=== PATIENT | male | born 1955 | race Caucasian/White ===

== ENCOUNTER → 2022-11-04 15:00 | Outpatient (BNVA) | payer BC, SELFPAY | PROVIDERS: PCP Pediatrics; Visit Provider Nurse Practitioner Family | DX: Z13.89 Encounter for screening for other disorder (principal) ==

== ENCOUNTER → 2023-02-06 14:01 | Outpatient (BNVA) | payer BC, SELFPAY | PROVIDERS: PCP Pediatrics; Visit Provider Nurse Practitioner Family | DX: M54.2 Cervicalgia (principal); G44.209 Tension-type headache, unspecified, not intractable ==

== ENCOUNTER 2023-04-09 15:41 | Outpatient (REF) | payer MEDICARE, SELFPAY ==
--- NOTE | ~2023-04-09 | MR_ITS ---
EXAMINATION: MR CERVICAL SPINE WITHOUT CONTRAST CLINICAL INFORMATION: Cervicalgia COMPARISON: None TECHNIQUE: MRI of the cervical spine was obtained using routine sequences without contrast. FINDINGS: Normal anatomic alignment. No suspicious marrow signal or focal osseous lesion. Endplate marrow edema at C5-C6. Type II endplate marrow signal changes at C6-C7. T1 vertebral body hemangioma. The vertebral body heights are maintained. Multilevel disc desiccation and height loss, worst at C6-C7. The cervical spinal cord is normal in caliber and signal Limited evaluation of the soft tissues of the neck without demonstrated abnormalities. The flow voids of the major cervical vessels are maintained. Normal appearance of the cervicomedullary junction and visualized posterior fossa SPINAL LEVELS: C2-C3: No significant spinal canal or neuroforaminal narrowing. Mild facet arthropathy. C3-C4: No significant spinal canal or neuroforaminal narrowing C4-C5: Mild facet arthropathy. Shallow right central disc protrusion. Recommend left uncovertebral hypertrophy. No significant central spinal canal stenosis. Mild to moderate right neural foraminal narrowing C5-C6: Disc osteophyte complex, mild facet arthropathy and uncovertebral hypertrophy. No significant central spinal canal stenosis. Moderate bilateral neural foraminal narrowing. C6-C7: Mild facet and uncovertebral hypertrophy. Moderate bilateral neural foraminal narrowing. No significant central spinal canal stenosis. C7-T1: No significant spinal canal or neuroforaminal narrowing MR/MR cervical spine wo con IMPRESSION: Multilevel cervical spondylosis as described above without significant central spinal canal narrowing, cord compression, or cord signal abnormality. There is moderate bilateral neural foraminal narrowing at C5-C6 and C6-C7.
== END 2023-04-09 15:42 | disposition home or self-care (01) ==
LOC: HO.MRI 15:41
PROVIDERS: PCP Pediatrics; Visit Provider Nurse Practitioner Family
DX: M54.2 Cervicalgia (principal); R29.898 Other symptoms and signs involving the musculoskeletal system; R25.1 Tremor, unspecified
CPT/HCPCS: 72141

== ENCOUNTER 2023-05-08 13:53 | Outpatient (REF) | payer MEDICARE, SELFPAY ==
--- NOTE | ~2023-05-08 | XR_ITS ---
EXAMINATION: XR SHOULDER, LEFT CLINICAL INFORMATION: Left shoulder pain COMPARISON: None available. TECHNIQUE: AP external rotation, Grashey, scapular Y, and axillary views of the left shoulder. FINDINGS: Supraspinatus insertional calcific tendinitis. Minimal glenohumeral osteoarthritis. The acromioclavicular joint appears normal. No fracture. XR/XR shoulder LT min 2V IMPRESSION: Supraspinatus insertional calcific tendinitis.
== END 2023-05-08 13:54 | disposition home or self-care (01) ==
LOC: HO.XRAY 13:53
PROVIDERS: PCP Pediatrics; Visit Provider Nurse Practitioner Family
DX: M25.512 Pain in left shoulder (principal)
CPT/HCPCS: 73030

== ENCOUNTER 2023-05-08 13:53 | Outpatient (AMB) | payer MEDICARE, SELFPAY ==
--- NOTE | 2023-05-08 13:57 | A.OFFVIS_ITS ---
Intake Vital Signs 05/08/23 14:05 Height 6 ft 1 in Weight 209 lb 6 oz BMI 27.6 BP 134/66 Blood Pressure Location Rt brachial Position Sitting Pulse 72 Pulse Source Pulse Oximeter Pulse Oximetry (%) 99 Oxygen Delivery Method Room Air Intake Visit Reasons: Cervicalgia Intake Note: Pain today 10/11. 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 Denies previous spine surgery or injections. 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 Patient reports neck pain started due to transition to remote learning and prolonged use of computers with looking down into screens since early 2019 due to COVID pandemic. Denies any recent trauma, injury or falls. His neck pain is mostly axial with painful left sided rotation, lateral bending and cervical extension. Patient reports his neck pain extends to his left occipital region at times. He also presents with mild to moderate left shoulder anterior pain with overhead reaches. Pain is intermittent with worst pain rated at 6/10 and worse in the mornings. He also reports weakness with his left hand grasps. Pain affects his daily activities, functions, sleep, mood and social activities. He has tried to alleviate his neck symptoms with Tylenol, NSAIDs, baclofen, PT exercises, neck pillow support, massages, good posture and adjusting his work environment with no significant improvement. Patient reports he recently retired but continues to experience daily neck pain. Denies previous chiropractic neck adjustments, aqua therapy, TENS unit or acupuncture. Cervical spine MRI showed multilevel cervical spondylosis with moderate bilateral neural foraminal narrowing at C5-C6 and C6-C7. Patient denies any fever, chills, weight loss, vision changes, chest pain, shortness of breaths, gait disturbances, back pain, bladder or bowel incontinence or saddle anesthesia. Location Left sided neck pain, reports mild to moderate left shoulder pain Duration Chronic pain for 2 past years Characteristics of symptom or complaint Aching and dull Aggravating or associated factors Sleeping on left side, looking at screen for long periods of time, movement Relieving factors Laying down with contour pillow, massage Treatment PT exercises, massages, muscle relaxants PFSH Surgical History Hx of colonoscopy History of jyoti hole surgery History of hernia repair Family History Mother Cerebrovascular accident (CVA) Son Skin cancer Daughter Skin cancer Paternal Grandfather Prostate cancer Father Heart murmur Brother Prostate cancer Social History Alcohol intake: current Alcohol intake frequency: a few times a month Patient Tobacco Use Status: Never used Tobacco Review of Systems Const All systems reviewed & are unremarkable except as noted in HPI and below Physical Exam Vital Signs: Last Vital Signs Pulse 72 05/08/23 14:05 BP 134/66 05/08/23 14:05 Pulse Ox 99 05/08/23 14:05 Oxygen Delivery Method Room Air 05/08/23 14:05 BMI result Body Mass Index 27.6 General: Appears afebrile. Alert and oriented. Mood and affect appropriate. Follows and participates in conversation appropriately. Respiratory effort is unlabored. No cough. Able to transition from sit to stand unassisted. Ambulates with bilaterally normal heel strike and toe off. HEENT Head: Yes normal to inspection, Yes No palpable skull fracture present, Yes normocephalic, Yes occipital foramen tenderness (left), No scalp tenderness and No Temporal artery tenderness present Neck Other: Patient with decreased cervical ROM in left lateral rotation and bending. Reports increased pain with cervical extension. Spurling compression test equivocal. Pain is unchanged by Spurling maneuver with retraction. Elvey's tension test positive on the left, with radiation of pain from neck into left shoulder and left upper lateral arm. Lhermitte's test was negative. DTR intact, +2 and symmetrical. Patient demonstrated 5/5 right and 4/5 left motor strength of bilateral upper extremities. Weak left hand grasp, able to make a fist. 2 + radial pulses. Significant tightness throughout left upper trapezius as well as TTP throughout bilateral upper trapezius muscles. No paravertebral tenderness over facet joint on affected side. Cervantes's negative. Mild LUE postural tremor. Extrem General: Yes capillary refill normal, Yes no clubbing, cyanosis or edema and Yes no calf tenderness Left upper extremity: shoulder/upper arm Details: inspection abnormal, tendern ess Location: of the A-C joint and over the biceps tendon, normal ROM and crepitus; no swelling, no ecchymosis and no unsual warmth Results Reviewed Results Reviewed: MR CERVICAL SPINE WITHOUT CONTRAST 04/09/23 FINDINGS: Normal anatomic alignment. No suspicious marrow signal or focal osseous lesion. Endplate marrow edema at C5-C6. Type II endplate marrow signal changes at C6-C7. T1 vertebral body hemangioma. The vertebral body heights are maintained. Multilevel disc desiccation and height loss, worst at C6-C7. The cervical spinal cord is normal in caliber and signal Limited evaluation of the soft tissues of the neck without demonstrated abnormalities. The flow voids of the major cervical vessels are maintained. Normal appearance of the cervicomedullary junction and visualized posterior fossa SPINAL LEVELS: C2-C3: No significant spinal canal or neuroforaminal narrowing. Mild facet arthropathy. C3-C4: No significant spinal canal or neuroforaminal narrowing C4-C5: Mild facet arthropathy. Shallow right central disc protrusion. Recommend left uncovertebral hypertrophy. No significant central spinal canal stenosis. Mild to moderate right neural foraminal narrowing C5-C6: Disc osteophyte complex, mild facet arthropathy and uncovertebral hypertrophy. No significant central spinal canal stenosis. Moderate bilateral neural foraminal narrowing. C6-C7: Mild facet and uncovertebral hypertrophy. Moderate bilateral neural foraminal narrowing. No significant central spinal canal stenosis. C7-T1: No significant spinal canal or neuroforaminal narrowing IMPRESSION: Multilevel cervical spondylosis as described above without significant central spinal canal narrowing, cord compression, or cord signal abnormality. There is moderate bilateral neural foraminal narrowing at C5-C6 and C6-C7. XR SHOULDER, LEFT 05/08/23 CLINICAL INFORMATION: Left shoulder pain COMPARISON: None available. TECHNIQUE: AP external rotation, Grashey, scapular Y, and axillary views of the left shoulder. FINDINGS: Supraspinatus insertional calcific tendinitis. Minimal glenohumeral osteoarthritis. The acromioclavicular joint appears normal. No fracture. IMPRESSION: Supraspinatus insertional calcific tendinitis. Assessment & Plan Assessment & Plan (1) Left shoulder pain: Code(s): M25.512 - Pain in left shoulder (2) Degenerative disc disease, cervical: Code(s): M50.30 - Other cervical disc degeneration, unspecified cervical region (3) Cervical spondylosis: Code(s): M47.812 - Spondylosis without myelopathy or radiculopathy, cervical region (4) Tremor: Code(s): R25.1 - Tremor, unspecified (5) Calcific supraspinatus tendinitis: Code(s): M75.30 - Calcific tendinitis of unspecified shoulder Plan 1. Left shoulder xray obtained today after visit and noted for supraspinatus insertional calcific tendinitis. We will proceed with Left subacromial steroid injection with local and US guidance. 2. For axial cervical spine pain, will schedule Diagnostic Left C4-C5-C6 MBB with local and fluoroscopy for potential cervical medial branch Sprint PNS trial. We also discussed therapeutic injections and RFA procedures. Informational booklet provided to patient. 3. Continue daily stretching exercises, massages, good posture, muscle relaxant as needed, avoid prolonged time sitting at computer and use adjustable desk to elevate computer screen at eye level instead of prolonged looking down screen. All questions and concerns have been answered and patient agreed with the plan. Follow up after injections and sooner if needed. Orders: Orders XR shoulder LT min 2V 05/08/23 M25.512 - Pain in left shoulder Coding Level of Care Code New Pt Level 4 (56932) Diagnoses Left shoulder pain M25.512 Degenerative disc disease, cervical M50.30 Cervical spondylosis M47.812 Tremor R25.1 Calcific supraspinatus tendinitis M75.30
[2023-05-08 14:05] VITALS: BP 134/66; PULSE 72; O2SAT 99; BMI 27.6
== END 2023-05-08 14:38 | disposition home or self-care (01) ==
PROVIDERS: PCP Pediatrics; Visit Provider Nurse Practitioner Family
DX: M25.512 Pain in left shoulder (principal); M50.30 Other cervical disc degeneration, unspecified cervical region; M47.812 Spondylosis without myelopathy or radiculopathy, cervical region; R25.1 Tremor, unspecified; M75.30 Calcific tendinitis of unspecified shoulder
CPT/HCPCS: 99204

== ENCOUNTER 2023-05-23 11:04 | Outpatient (AMB) | payer MEDICARE, SELFPAY ==
--- NOTE | 2023-05-23 11:07 | MHC.OFFVIS ---
Intake Vital Signs 05/23/23 11:08 Height 6 ft 1 in Weight 209 lb BMI 27.6 BP 139/65 Blood Pressure Location Rt brachial Position Sitting Respiration 14 Pulse 51 Pulse Source Pulse Oximeter Pulse Oximetry (%) 99 Oxygen Delivery Method Room Air Intake Visit Reasons: left subacromial steroid injection Allergies No Known Allergies Allergy (Verified 05/27/23 13:32) HPI left subacromial steroid injection HPI Details 67-year-old male who presents today to the office for a left subacromial steroid injection. Denies any recent cough, cold, infection, fever or other significant changes in medical history since last office visit. 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 [facility] Surgical History Hx of colonoscopy History of jyoti hole surgery History of hernia repair Family History Mother Cerebrovascular accident (CVA) Son Skin cancer Daughter Skin cancer Paternal Grandfather Prostate cancer Father Heart murmur Brother Prostate cancer Social History Alcohol intake: current Alcohol intake frequency: a few times a month Patient Tobacco Use Status: Never used Tobacco Review of Systems Const All systems reviewed & are unremarkable except as noted in HPI and below Physical Exam Vital Signs: Last Vital Signs Pulse 51 05/23/23 11:08 Resp 14 05/23/23 11:08 BP 139/65 05/23/23 11:08 Pulse Ox 99 05/23/23 11:08 Oxygen Delivery Method Room Air 05/23/23 11:08 BMI result Body Mass Index 27.6 General: Appears afebrile. Alert and oriented. Mood and affect appropriate. Follows and participates in conversation appropriately. Respiratory effort is unlabored. Able to transition from sit to stand unassisted. Ambulates with bilaterally normal heel strike and toe off. Office Procedures Joint Injection/Drain Joint Injection/Drain Details: Left subacromial steroid injection, ultrasound guided Primary Site: left shoulder Prep: site was prepped using aseptic technique and site was prepped using sterile technique Injected: 40 mg of, Kenalog, with 3 mL of, 0.25% bupivacaine and in the subcromial space (left side) Approach Used: posterolateral Procedure: The patient tolerated the procedure well Coding Details: An ultrasound image of the injection was taken and stored in the permanent record. 04618 - Acromioclavicular with ultrasound guidance Procedure code (CPT) selection complete Results Reviewed Results Reviewed: No imaging is available for review. Assessment & Plan Assessment & Plan (1) Calcific supraspinatus tendinitis: Code(s): M75.30 - Calcific tendinitis of unspecified shoulder Plan Patient is status post left subacromial injection. Patient tolerated procedure well and was discharged home in stable condition with discharge instructions. All questions were answered. We will follow-up in two weeks via telephone or in clinic to assess response to therapy. A follow-up appointment was made during today's visit. Scribed for Dr. Riggins by Mauricio Kong, medical housekeeper, on 05/23/2023. I, Dr. Riggins, have personally reviewed and agree with the information entered by the scribe. Coding Level of Care Code Procedure Only Diagnoses Calcific supraspinatus tendinitis M75.30 CPT Codes Coding - Joint 6: 62270 - Acromioclavicular with ultrasound guidance ([id number])
[2023-05-23 11:08] VITALS: BP 139/65; PULSE 51; RESP 14; O2SAT 99; BMI 27.6
== END 2023-05-23 11:26 | disposition home or self-care (01) ==
PROVIDERS: PCP Pediatrics; Visit Provider Internal Medicine
DX: M75.30 Calcific tendinitis of unspecified shoulder (principal)
CPT/HCPCS: 20611

== ENCOUNTER → 2023-05-23 11:04 | Outpatient (BNVA) | payer MEDICARE, SELFPAY | PROVIDERS: PCP Pediatrics; Visit Provider Internal Medicine | DX: M75.32 Calcific tendinitis of left shoulder (principal) | CPT/HCPCS: 20611; J3301 ==

== ENCOUNTER 2023-05-27 13:23 | Outpatient (AMB) | payer MEDICARE, SELFPAY ==
--- NOTE | 2023-05-27 13:26 | MHC.OFFVIS ---
Intake Vital Signs 05/27/23 13:27 Weight 209 lb BP 124/86 Blood Pressure Location Rt brachial Position Sitting Pulse 52 Pulse Source Pulse Oximeter Pulse Oximetry (%) 100 Oxygen Delivery Method Room Air Intake Visit Reasons: 3M Follow up head pressure/neck pain-Confirmed Intake Note: Pt states he has slight pain , but it has improved no major issues today , pt states sleep hasnt been as good, wakes up and has a hard time falling back asleep . Allergies No Known Allergies Allergy (Verified 05/27/23 13:32) Medication List - Last Reconciled 05/27/23 by EMILY Trinidad alprazolam 0.25 mg orally 1 tab 30 minutes prior to MRI, may repeat x's 1; 1 day alprazolam 0.25 mg orally 1 tab 30 minutes prior to MRI, may repeat x's 1; 1 day baclofen 5 - 10 mg (1 - 2 x 5 mg) PO BEDTIME 30 days dapsone 5% topical hydroxychloroquine 200 mg PO BID sildenafil 50 mg PO DAILY PRN tamsulosin 0.4 mg PO DAILY HPI HPI Comments History of Present Illness Details 67-yr-old male presents for f/u visit. Pt denies any significant interval medical changes. However, he has just been dx's w/ a UTI- he is starting Bactrim today. He has a urology consult next week. His neck symptoms have been well-controlled. Not using Baclofen any more. He reports that he is having some increased sleep difficulties. He goes to bed around 9-10pm and usually falls asleep easily, then wakes up around 2-3am, but then may take 45-60 minutes to fall back asleep. He is hoping to optimize his sleep as he has heard that poor sleep is a/w negative health outcomes. He is not eating prior to bed. Limits fluids before bed. Does read a paperbook book prior to bed. There is no TV on at night, but his may use a tablet/phone. May have a glass of wine or a beer w/ dinner- around 6:30pm. Taking 1-2 cups of coffee per day- before 3pm. He may snore. May take a daytime nap. He usually runs about 40 minutes most days between 4-5pm, generally not sedentary. [facility], [facility] Surgical History Hx of colonoscopy History of jyoti hole surgery History of hernia repair Family History Mother Cerebrovascular accident (CVA) Son Skin cancer Daughter Skin cancer Paternal Grandfather Prostate cancer Father Heart murmur Brother Prostate cancer Social History Alcohol intake: current Alcohol intake frequency: a few times a month Patient Tobacco Use Status: Never used Tobacco Review of Systems Const All systems reviewed & are unremarkable except as noted in HPI and below Physical Exam Vital Signs: Last Vital Signs Pulse 52 05/27/23 13:27 BP 124/86 05/27/23 13:27 Pulse Ox 100 05/27/23 13:27 Oxygen Delivery Method Room Air 05/27/23 13:27 Const General: cooperative and no acute distress Orientation/consciousness: patient oriented x3 HEENT Head: Yes normocephalic Resp Effort & Inspection: normal respiratory effort and able to speak in complete sentences Neuro General: patient oriented x3, gait normal and CN's II-XI intact bilaterally Cognition (Neuro): normal cognition Motor exam (neuro): 5/5 motor strength present throughout Psych Appearance: grossly normal Mental Status: mental status grossly normal Speech and movement: Normal speech and movement present Affect: normal affect Attitude: cooperative Thought process: Normal thought process present Thought content: Normal thought content present Insight: Good insight present (Psych) Judgement: Good judgement present (Psych) Assessment & Plan Assessment & Plan (1) Sleep difficulties: Code(s): G47.9 - Sleep disorder, unspecified (2) UTI (urinary tract infection): Code(s): N39.0 - Urinary tract infection, site not specified (3) Cervical spondylosis: Code(s): M47.812 - Spondylosis without myelopathy or radiculopathy, cervical region Plan Reviewed sleep hygiene stratgeis. Info given on sleep hygiene and CBTi resources, such as Dr Geoff Arce's sleep unplugged podcast. Continue exercise. Pt may need to wait until UTI resolved before fully seeing sleep benefits from above. Pt may use OTC Pyridium 2 tabs tid x's 2-3 days while starting Bactrim. Monitor cervicalgia. May use Baclofen prn. f/u in 6 months or sooner prn. Coding Level of Care Code Est Pt Level 3 (88676) Diagnoses Sleep difficulties G47.9 UTI (urinary tract infection) N39.0 Cervical spondylosis M47.812
[2023-05-27 13:27] VITALS: BP 124/86; PULSE 52; O2SAT 100
== END 2023-05-27 14:13 | disposition home or self-care (01) ==
PROVIDERS: PCP Pediatrics; Visit Provider Nurse Practitioner Family
DX: G47.9 Sleep disorder, unspecified (principal); N39.0 Urinary tract infection, site not specified; M47.812 Spondylosis without myelopathy or radiculopathy, cervical region
CPT/HCPCS: 99213

== ENCOUNTER → 2023-05-27 13:23 | Outpatient (BNVA) | payer MEDICARE, SELFPAY | PROVIDERS: PCP Pediatrics; Visit Provider Nurse Practitioner Family | DX: G47.9 Sleep disorder, unspecified (principal); M47.812 Spondylosis without myelopathy or radiculopathy, cervical region; N39.0 Urinary tract infection, site not specified | CPT/HCPCS: 99212 ==

== ENCOUNTER 2023-07-23 05:59 | Outpatient (REF) | payer MEDICARE, SELFPAY ==
--- NOTE | ~2023-07-23 | FL_ITS ---
EXAMINATION: XR FLUOROSCOPY WITH IMAGES CLINICAL INFORMATION: Spondylosis without myelopathy or radiculopathy, cervical region. COMPARISON: None available. TECHNIQUE: Fluoroscopy Supervised By: Dr. Cristopher Riggins. Fluoroscopy Time: 0.1 minute. Cumulative Dose: 3.77 mGy. DAP: 0.303 Gycm2. Images: 2. FINDINGS: Images demonstrate needle placement and contrast injection adjacent to left lateral cervical vertebrae FL/FL guidance in treatment room IMPRESSION: Fluoroscopy guidance for pain management procedure
== END 2023-07-23 06:00 | disposition home or self-care (01) ==
LOC: CF 05:59
PROVIDERS: Visit Provider Internal Medicine
DX: M47.812 Spondylosis without myelopathy or radiculopathy, cervical region (principal)
CPT/HCPCS: 64490; 64491; J2795; Q9967

== ENCOUNTER 2023-07-23 08:44 | Outpatient (AMB) | payer MEDICARE, SELFPAY ==
[2023-07-23 09:39] VITALS: BP 126/68; PULSE 60; RESP 16; O2SAT 100; BMI 27.6
--- NOTE | 2023-07-23 09:39 | A.OFFVIS_ITS ---
Intake Vital Signs 07/23/23 09:39 07/23/23 09:40 Height 6 ft 1 in 6 ft 1 in Weight 209 lb 209 lb BMI 27.6 27.6 BP 126/68 118/60 Blood Pressure Location Lt brachial Lt brachial Position Sitting Sitting Respiration 16 18 Pulse 60 66 Pulse Source Pulse Oximeter Pulse Oximeter Pulse Oximetry (%) 100 99 Oxygen Delivery Method Room Air Comment Pre-Op Post-Op Intake Visit Reasons: Left Dx C4-C5-C6 MBB Allergies No Known Allergies Allergy (Verified 05/27/23 13:32) HPI Left Dx C4-C5-C6 MBB HPI Details Patient presents for scheduled procedure. Denies any recent cough, cold, infection, fever or other significant changes in medical history since last office visit. [facility] Surgical History Hx of colonoscopy History of jyoti hole surgery History of hernia repair Family History Mother Cerebrovascular accident (CVA) Son Skin cancer Daughter Skin cancer Paternal Grandfather Prostate cancer Father Heart murmur Brother Prostate cancer Alcohol intake: current Alcohol intake frequency: a few times a month Patient Tobacco Use Status: Never used Tobacco Physical Exam Vital Signs: Last Vital Signs Pulse 66 07/23/23 09:40 Resp 18 07/23/23 09:40 BP 118/60 07/23/23 09:40 Pulse Ox 99 07/23/23 09:40 Oxygen Delivery Method Room Air 07/23/23 09:40 BMI result Body Mass Index 27.6 Office Procedures Cervical/Thoracic Facet Inj Details: Diagnostic Cervical Medial Branch Block, Left C4, C5, C6 medial branches After obtaining written consent, pre-procedure blood pressure and pulse were recorded and are in the nursing record for review. The patient was placed in a lateral position. The respective cervical area was prepped with chloraprep and draped in sterile fashion. The skin over the target medial branch nerves was anesthetized with 0.5% lidocaine. A 25 gauge 1.5 inch needle was inserted into the target medial branch nerve under fluoroscopic guidance. No paresthesias were elicited with needle placement and aspiration was negative for blood and CSF. Next, 0.2cc of omnipaque 180 was injected to verify positioning. Next 0.5 ml 0.5% ropivacaine was injected (0.5 cc total per level). The identical procedure was performed at the remaining levels. The skin was cleansed and a sterile bandage was applied. Following the procedure the patient's vital signs were stable. The patient tolerated the procedure well and no complications were encountered. Following the procedure the patient's vital signs were stable. The patient was discharged home in good condition with post-procedural instructions. Time Out: Immediately prior to the procedure, the following was verbally confirmed that there is a signed consent form and that the correct patient, planned procedure, site and side are consistent with documentation and that necessary equipment and/or blood products are available prior to the start of the case. Complications: none EBL: <5 cc 98628 - second level, with Fluoroscopy Procedure code (CPT) selection complete Assessment & Plan Assessment & Plan (1) Cervical spondylosis: Code(s): M47.812 - Spondylosis without myelopathy or radiculopathy, cervical region Plan Patient is status post diagnostic left cervical MBBs. Patient tolerated procedure well and was discharged home in stable condition with discharge instructions. All questions were answered. We will follow-up via telephone or in clinic to assess response to therapy. A follow-up appointment was made during today's visit. Orders: Orders FL guidance in treatment room Today M47.812 - Spondylosis without myelopathy or radiculopathy, cervical region Coding Level of Care Code Procedure Only Diagnoses Cervical spondylosis M47.812 CPT Codes Facet Injection Cervical/Thoracic - CPT: 48333 - second level, with Fluoroscopy ([id number])
[2023-07-23 09:40] VITALS: BP 118/60; PULSE 66; RESP 18; O2SAT 99; BMI 27.6
== END 2023-07-23 09:41 | disposition home or self-care (01) ==
LOC: HO.PMCPRC 08:44
PROVIDERS: PCP Pediatrics; Visit Provider Internal Medicine
DX: M47.812 Spondylosis without myelopathy or radiculopathy, cervical region (principal)
CPT/HCPCS: 64490; 64491

== ENCOUNTER 2023-07-28 09:15 | Outpatient (AMB) | payer MEDICARE, SELFPAY ==
[2023-07-28 09:22] VITALS: PULSE 48; RESP 12; O2SAT 99; BMI 27.6
--- NOTE | 2023-07-28 09:22 | MHC.OFFVIS ---
Intake Vital Signs 07/28/23 09:22 Height 6 ft 1 in Weight 209 lb BMI 27.6 Blood Pressure Location Lt brachial Position Sitting Respiration 12 Pulse 48 L Pulse Source Pulse Oximeter Pulse Oximetry (%) 99 Oxygen Delivery Method Room Air Intake Visit Reasons: s/p left Dx C4-C5-C6 MBB Allergies No Known Allergies Allergy (Verified 07/28/23 09:24) Medication List - Last Reconciled 07/28/23 by Virgie Byrnes LPN alprazolam 0.25 mg orally 1 tab 30 minutes prior to MRI, may repeat x's 1; 1 day alprazolam 0.25 mg orally 1 tab 30 minutes prior to MRI, may repeat x's 1; 1 day baclofen 5 - 10 mg (1 - 2 x 5 mg) PO BEDTIME 30 days dapsone 5% topical hydroxychloroquine 200 mg PO BID sildenafil 50 mg PO DAILY PRN tamsulosin 0.4 mg PO DAILY HPI s/p left Dx C4-C5-C6 MBB HPI Details 67-year-old male who presents today to the office for a status post left diagnostic C4-C5-C6 MBB. The patient reports no relief following the procedure. The patient reports neck pain. He reports a shoulder pain that radiates down to the left arm. He also complains of subjective weakness in his left arm. He also feels he has a mild tremor on the left side. He has performed 6 sessions of physical therapy in the past with no benefit. He continues to have pain in his shoulder on the left side with range of motion as well. The subacromial injection provided some relief. Past Procedures: 07/23/23: Diagnostic Cervical Medial Branch Block, Left C4, C5, C6 medial branches: no relief. 05/23/23: Left subacromial steroid injection, ultrasound guided: Moderate relief. [facility] Surgical History Hx of colonoscopy History of jyoti hole surgery History of hernia repair Family History Mother Cerebrovascular accident (CVA) Son Skin cancer Daughter Skin cancer Paternal Grandfather Prostate cancer Father Heart murmur Brother Prostate cancer Social History Alcohol intake: current Alcohol intake frequency: a few times a month Patient Tobacco Use Status: Never used Tobacco Review of Systems Const All systems reviewed & are unremarkable except as noted in HPI and below Physical Exam Vital Signs: Last Vital Signs Pulse 48 L 07/28/23 09:22 Resp 12 07/28/23 09:22 Pulse Ox 99 07/28/23 09:22 Oxygen Delivery Method Room Air 07/28/23 09:22 BMI result Body Mass Index 27.6 General: Appears afebrile. Alert and oriented. Mood and affect appropriate. Follows and participates in conversation appropriately. Respiratory effort is unlabored. Able to transition from sit to stand unassisted. Ambulates with bilaterally normal heel strike and toe off. Results Reviewed Results Reviewed: No imaging is available for review. Assessment & Plan Assessment & Plan (1) Cervical radiculopathy: Code(s): M54.12 - Radiculopathy, cervical region Plan Hs symptoms of neck pain with radiation down the left arm are consistent with cervical radiculitis secondary to C5-6 neural foraminal stenosis. Discussed epidural steroid injection vs. physical therapy as possible treatment options At this time. A referral was provided to physical therapy. The patient will receive a call to schedule an appointment. If pain continues to persist despite PT, cervical traction and massage therapy, we will schedule him for a C7-T1 left parasagittal ALIS. Scribed for Dr. Riggins by Mauricio Kong, medical assisting instructor, on 07/28/2023. I, Dr. Riggins, have personally reviewed and agree with the information entered by the scribe. Orders: Orders PT Evaluation and Treatment 07/28/23 M54.12 - Radiculopathy, cervical region Coding Level of Care Code Est Pt Level 3 (78451) Diagnoses Cervical radiculopathy M54.12
== END 2023-07-28 09:44 | disposition home or self-care (01) ==
PROVIDERS: PCP Pediatrics; Visit Provider Internal Medicine
DX: M54.12 Radiculopathy, cervical region (principal)
CPT/HCPCS: 99213

== ENCOUNTER → 2023-07-28 09:15 | Outpatient (BNVA) | payer MEDICARE, SELFPAY | PROVIDERS: PCP Pediatrics; Visit Provider Internal Medicine | DX: M54.12 Radiculopathy, cervical region (principal) | CPT/HCPCS: 99212 ==